=== PATIENT | female | born 1985 | race Caucasian/White ===

== ENCOUNTER 2017-02-03 06:51 | Inpatient (IN) | payer BC ==
[~2017-02-03] VITALS: Ht 157.5 cm; Wt 77.2 kg
--- NOTE | ~2017-02-03 | OR ---
PATIENT'S NAME: KATHERINE MARTINEZ [facility] AGE: 32 Y [address] ROOM: [place] [id number] LOCATION: GOBS ADMIT DATE: 02/03/2017 OR/Procedure Report DISCHARGE DATE: FAMILY PHYSICIAN: Bernadette Guido MD ATTENDING PHYSICIAN: Roopa Blair SURGEON: Roopa Blair MD AUTOMOTIVE STARTER REPAIRER: DATE OF PROCEDURE: 02/03/2017 This is a 32-year-old, 3, para 0-0-2-0, who presents at 37 weeks gestation with spontaneous rupture of membranes and rapid progress of labor. She presents to Labor and Delivery and is 4 cm, 100% effaced in vertex. heart tones are reassuring. Her group B strep testing is documented and was negative. She got an intrathecal and progressed quickly to complete on +2 station. heart tones again are reassuring. She pushed for just under an hour. heart tones were reassuring throughout. She pushed and delivered the vertex in the HILARIO position over a first-degree laceration. Shoulders and body are easily delivered. Baby boy lets out a spontaneous cry. He is placed on maternal abdomen. His cord was doubly clamped and cut. He received score of 8 and 9. A three-vessel cord was noted. Placenta delivered spontaneously and intact. The placenta does have a velamentous cord insertion. The cervix and vagina are intact. First-degree laceration was repaired in the usual fashion with 2-0 chromic. The patient tolerated the procedure well. She and her baby are doing well in recovery. ROOPA BLAIR MD KHP/modl /[id number] d: 02/03/17 1332 t: 02/08/17 1011, OPERATIVE SUMMARY
[~2017-02-03 06:51] MED LIST: METHERGINE0.2 MG PO; PRENATAL 1+1)(P1 TAB PO; TYLENOL/COD#31 TAB PO
[2017-02-03 07:41] LABS: BASOPHIL % 0.3 %; EOSINOPHIL # 0.1 K/uL (0.0-0.5); EOSINOPHIL % 1.3 %; HEMATOCRIT 38.4 % (33.0-46.0); HEMOGLOBIN 13.3 g/dL (11.0-15.0); IMMATURE GRANULOCYTE # 0.2 K/uL (0.0-0.3); IMMATURE GRANULOCYTE % 2.2 %; LYMPHOCYTE # 2.8 K/uL (0.8-4.0); LYMPHOCYTE % 26.5 %; MCH 31.1 pg (27.0-34.0); MCHC 34.6 gm/dL (32.0-36.5); MCV 89.9 fl (83.0-98.0); MONOCYTE # 0.9 K/uL (0.0-1.0); MONOCYTE % 8.1 %; MPV 11.8 fl (9.4-12.4); NEUTROPHIL # (ANC) 6.5 K/uL (1.8-7.8); NEUTROPHIL % 61.6 %; NRBC % 0 /100WBC (0-0.00); PLATELET COUNT 110 K/uL (150-450); RBC 4.27 M/uL (3.50-5.50); RDW-CV 13.1 % (11.9-14.6); WBC 10.6 K/uL (4.0-11.0)
--- NOTE | 2017-02-03 17:56 | NUR ---
Last VS: T:98.5 P: R: 18 BP: Pain rating: . Last pain med: Motrin 1130 Medicated at: Effective: Yes Breasts: , Nipples: WNL Fundus:, , DOWN 1 Lochia: , SM Epis/Perineum: , , SWOLLEN Voiding well: X1 Significant event: .SHOWERED, TOLERATED WELL. SALINE LOCK INTACT.
[2017-02-04 04:36] LABS: BASOPHIL % 0.1 %; EOSINOPHIL # 0.1 K/uL (0.0-0.5); EOSINOPHIL % 0.7 %; HEMATOCRIT 32.6 % (33.0-46.0); HEMOGLOBIN 10.9 g/dL (11.0-15.0); IMMATURE GRANULOCYTE # 0.2 K/uL (0.0-0.3); IMMATURE GRANULOCYTE % 1.3 %; LYMPHOCYTE # 2.9 K/uL (0.8-4.0); LYMPHOCYTE % 21.4 %; MCH 30.6 pg (27.0-34.0); MCHC 33.4 gm/dL (32.0-36.5); MCV 91.6 fl (83.0-98.0); MONOCYTE # 0.9 K/uL (0.0-1.0); MONOCYTE % 6.3 %; NEUTROPHIL # (ANC) 9.4 K/uL (1.8-7.8); NEUTROPHIL % 70.2 %; NRBC % 0 /100WBC (0-0.00); PLATELET COUNT 102 K/uL (150-450); RBC 3.56 M/uL (3.50-5.50); RDW-CV 13.2 % (11.9-14.6); WBC 13.5 K/uL (4.0-11.0)
--- NOTE | 2017-02-04 05:02 | NUR ---
VSS, up ad rufus, fundus firm, lochia small, emptying bladder without difficulty. Darby at 1945 for cramping.
--- NOTE | 2017-02-04 18:43 | NUR ---
Last VS: T:98.3 P:67 R: 16 BP: 135/75 Pain ratin Last pain med: Motrin Medicated at: 1640 Effective: Yes Breasts: , Nipples: TENDER/INTACT (has oint's) Fundus: FIRM Lochia: SMALL Epis/Perineum: 1ST DEG LAC APPROX Voiding well: Y Significant event: *.UP AD PATRICIA, DOING WELL, HOME TMRW.
[2017-02-05] MEDS ORDERED: MOTRIN800 MG PO (11:09)
[2017-02-05] MEDS ORDERED: PERCOCET 5-3251 EACH PO (11:09)
== END 2017-02-05 15:15 | disposition disaster alternative care site (69) | DRG 775 ==
LOC: GOBS 06:51
PROVIDERS: ADMIT Obstetrics & Gynecology
PROC: 10E0XZZ Delivery of Products of Conception, External Approach (ICD-10-PCS; principal; 2017-02-03)
DX: O70.0 First degree perineal laceration during delivery (principal); Z37.0 Single live birth; Z3A.37 37 weeks gestation of pregnancy
CPT/HCPCS: J2590; J3010; J7120